=== PATIENT | female | born 2000 | race Caucasian/White ===

== ENCOUNTER 2018-07-06 00:02 | Observation (INO) ==
[2018-07-06] MEDS ORDERED: PANTOprazole 80 MG in DEXTROSE 5% 100 ML IV ONE (00:35)
[2018-07-06] MEDS ORDERED: raNITIdine 50 MG/102 ML BAG IV STA (00:35)
[2018-07-06 00:43] LABS: Basophils # (auto) 0.02 K/uL (0-0.2); Basophils % (auto) 0.2 %; Eosinophils # (auto) 0.05 K/uL (0-0.5); Eosinophils % (auto) 0.6 %; Hemoglobin 15.3 g/dL (12.0-16.0); Immature Granulocytes # (auto) 0.03 K/uL (0.00-0.02); Immature Granulocytes % (auto) 0.3 %; Lymphocytes # (auto) 1.36 K/uL (1.2-3.4); Lymphocytes % (auto) 15.6 %; Mean Corpuscular Hgb Conc 34.8 g/dL (32-36); Mean Corpuscular Volume 86.3 fL (80-100); Mean Platelet Volume 10.5 fL (7.4-10.4); Monocytes # (auto) 0.47 K/uL (0.11-0.59); Monocytes % (auto) 5.4 %; Neutrophils # (auto) 6.78 K/uL (1.4-6.5); Neutrophils % (auto) 77.9 %; Platelet Count 166 K/uL (130-400); RDW Coefficient of Variation 13.5 % (11.5-14.5); RDW Standard Deviation 42.9 fL (36.4-46.3); White Blood Count 8.71 K/uL (4.8-10.8)
[2018-07-06] MEDS ORDERED: SODIUM CHLORIDE 0.9% 1000ML 1,000 ML IV SCH (00:45)
[2018-07-06 01:00] LABS: Albumin Level 3.4 gm/dl (3.4-5.0); BUN Creatinine Ratio 10.8 (10-20); Calcium 8.2 mg/dl (8.5-10.1); Creatinine Clr Calc Pharmacy 90.3 ml/min; Est GFR (Non-African American) 114.7; Potassium 3.7 mmol/L (3.5-5.1)
[2018-07-06 01:03] LABS: Bilirubin,Total 0.3 mg/dl (0.2-1); Globulin 3.5 gm/dl (2.5-4.0); Total Protein 6.9 gm/dl (6.4-8.2)
[2018-07-06 01:04] LABS: Appearance Urine Clear (Clear); Bilirubin Urine Negative (Negative); Blood Urine Negative (Negative); Color Urine Yellow; Glucose Urine UA Negative (Negative); Ketones Urine 1+ (Negative); Leukocyte Esterase Urine Negative (Negative); Nitrite Urine Negative (Negative); Protein Urine Negative (Negative); Urobilinogen Urine Negative (Negative)
[2018-07-06] MEDS ORDERED: IOVERSOL 100ml IV PRN (01:37)
[2018-07-06] MEDS ORDERED: CALCIUM GLUCONATE 10% 1,000 MG in SODIUM CHLORIDE 0.9% 50 ML IV STA (02:42)
[2018-07-06 02:53] LABS: Magnesium 2.1 mg/dl (1.8-2.4)
--- NOTE | 2018-07-06 03:17 | Emergency Department Note ---
History of Present Illness General Chief complaint: Abdominal Pain Stated complaint: STOMACH PAIN History of Present Illness Maximum Pain Intensity: 4 This 18-year-old presents to the ER complaining of epigastric pain with black tarry stool Location: Epigastric Quality: Uncomfortable Severity: Moderate Duration: Today Timing: This morning Context: Patient was concerned and came in Modifying factors: better with nothing; worse with eating Patient states she has been taking a lot of Motrin for her headaches. She smokes. She takes control. She does not eat much. No history of GI bleeding in the past. Patient denies chest pain, dyspnea, fevers, vomiting, diarrhea, back pain, urinary symptoms, lightheadedness, weakness. No other concerns per patient. No alcohol or drug use. Home Medications Home Medications Medication Instructions Recorded Confirmed Type desogestrel-ethinyl estradiol 1 tab PO DAILY 07/06/18 07/06/18 History [Apri] Allergies Allergy/AdvReac Type Severity Reaction Status Date / Time Penicillins Allergy Intermediate Hives Unverified 07/06/18 02:26 Past Med/Surg History Medical History Migraines Social History Feels Safe at Home: Yes Smoking Status: Current every day smoker Preferred Language: [place] Review of Systems All systems reviewed & are unremarkable except as noted in HPI & below Physical Exam Vital Signs Vital Signs - 24 hr 07/06/18 00:07 07/06/18 01:46 Temperature 36.6 C Temperature Source Oral Sepsis Recent Fever Within 48 Hours No Sepsis Action Taken by Nursing No Action Required Pulse Rate 86 Pulse Rate [Left Finger] 73 Pulse Rhythm Regular Pulse Strength Normal Respiratory Rate 18 16 Respiratory Effort / Characteristics Non-Labored Spontaneous Non-Labored Spontaneous Respiratory Depth Normal Normal Respiratory Pattern Regular Regular Blood Pressure 129/83 Blood Pressure [Right Arm] 123/74 Blood Pressure Mean 98 Blood Pressure Mean [Right Arm] 90 Blood Pressure Position Sitting Blood Pressure Position [Right Arm] Lying Pulse Oximetry 99 99 Oxygen Delivery Method Room Air Room Air VITALS: Vitals are noted on the nurse's note and reviewed by myself. Vital signs stable. GENERAL: Pleasant female, in no acute distress, nondiaphoretic, well-developed well-nourished. SKIN: The skin was without rashes, erythema, edema, or bruising. There is no tenting of the skin. Capillary reflex less than 2 seconds. HEAD: Normocephalic atraumatic. EARS: External auditory canals clear, tympanic membranes pearly [place] without erythema or effusion bilaterally. EYES: Pupils equal round and reactive to light and accommodation. Conjunctivae without injection, sclerae without icterus. Extraocular movements intact. NOSE: Patent, turbinates without inflammation or discharge. MOUTH: Mucous membranes moist. Pharynx without erythema or exudate. Uvula midline. Airway patent. Tongue does not deviate. NECK: Supple without nuchal rigidity. No lymphadenopathy. No thyromegaly. Cervical spine is nontender. No JVD. HEART: Regular rate and rhythm without murmurs gallops or rubs. LUNGS: Clear to auscultation bilaterally without wheezes, rales or rhonchi. No retractions or accessory muscle use. ABDOMEN: Positive bowel sounds x 4. Normal tympanic percussion. Soft, tender to palpation epigastric region, without masses or organomegaly. Mcintyre sign negative. No guarding or rebound tenderness. No CVA tenderness Rectal exam: Black stool guaiac positive. No fissures or tears. MUSCULOSKELETAL: No muscle atrophy, erythema, or edema noted. NEURO: Patient was alert and oriented to person place and time. Normal sensation to light and sharp touch. No focal neurological deficits. Course Administered Medications Sodium Chloride (Nss 1000ml) 1,000 mls @ 100 mls/hr IV .Q10H [facility] Stop: 07/06/18 10:44 Last Admin: 07/06/18 00:51 Dose: 100 mls/hr Ioversol (Optiray 320 100ml) 93 ml IV ONCE PRN PRN Reason: Interaction Checking Stop: 07/10/18 01:36 Last Admin: 07/06/18 01:37 Dose: 93 ml Discontinued Medications Ranitidine HCl (Zantac) 50 mg in 102 mls @ 200 mls/hr IV NOW STA Stop: 07/06/18 01:05 Last Infusion: 07/06/18 01:25 Dose: Admin: 07/06/18 00:51 Dose: 200 mls/hr Pantoprazole Sodium 80 mg/ (Dextrose) 100 mls @ 400 mls/hr IV NOW ONE Stop: 07/06/18 00:49 Last Infusion: 07/06/18 01:45 Dose: Admin: 07/06/18 01:26 Dose: 400 mls/hr Calcium Gluconate 1,000 mg/ (Sodium Chloride) 60 mls @ 240 mls/hr IV NOW STA Stop: 07/06/18 02:56 Last Admin: 07/06/18 02:59 Dose: 240 mls/hr Medical Decision Making Medical Records Attestation: I reviewed the patient's medical records. Home Medications Current Medication List: was personally reviewed by me Laboratory Data Attestation: I reviewed the patient's lab results. Result diagrams: 07/06/18 00:20 07/06/18 00:20 Lab Results 07/06/18 07/06/18 07/06/18 Range/Units 00:15 00:15 00:20 WBC 8.71 (4.8-10.8) K/uL RBC 5.10 (4.2-5.4) M/uL Hgb 15.3 (12.0-16.0) g/dL Hct 44.0 (37-47) % MCV 86.3 (80-100) fL MCH 30.0 (25-34) pg MCHC 34.8 (32-36) g/dL RDW Std Deviation 42.9 (36.4-46.3) fL RDW Coeff of Gabe 13.5 (11.5-14.5) % Plt Count 166 (130-400) K/uL MPV 10.5 H (7.4-10.4) fL Immature Gran % (Auto) 0.3 % Neut % (Auto) 77.9 % Lymph % (Auto) 15.6 % [place] % (Auto) 5.4 % Eos % (Auto) 0.6 % Baso % (Auto) 0.2 % Immature Gran # (Auto) 0.03 H (0.00-0.02) K/uL Neut # (Auto) 6.78 H (1.4-6.5) K/uL Lymph # (Auto) 1.36 (1.2-3.4) K/uL [place] # (Auto) 0.47 (0.11-0.59) K/uL Eos # (Auto) 0.05 (0-0.5) K/uL Baso # (Auto) 0.02 (0-0.2) K/uL PT (9.0-12.0) Seconds INR (0.9-1.1) APTT (21.0-31.0) Seconds PTT Ratio Sodium (136-145) mmol/L Potassium (3.5-5.1) mmol/L Chloride (98-107) mmol/L Carbon Dioxide (21-32) mmol/L Anion Gap (3-11) BUN (7-18) mg/dl Creatinine (0.6-1.2) mg/dl Est Cr Clr Drug Dosing ml/min Est GFR ( Amer) Est GFR (Non-Af Amer) BUN/Creatinine Ratio (10-20) Glucose (70-99) mg/dl Calcium (8.5-10.1) mg/dl Magnesium (1.8-2.4) mg/dl Total Bilirubin (0.2-1) mg/dl AST (15-37) U/L ALT (12-78) U/L Alkaline Phosphatase (45-117) U/L Total Protein (6.4-8.2) gm/dl Albumin (3.4-5.0) gm/dl Globulin (2.5-4.0) gm/dl Albumin/Globulin Ratio (0.9-2) Lipase (73-393) U/L Urine Color Yellow Urine Appearance Clear (Clear) Urine pH 5.0 (4.5-7.5) Ur Specific [place] 1.020 (1.000-1.030) Urine Protein Negative (Negative) Urine Glucose (UA) Negative (Negative) Urine Ketones 1+ H (Negative) Urine Blood Negative (Negative) Urine Nitrite Negative (Negative) Urine Bilirubin Negative (Negative) Urine Urobilinogen Negative (Negative) Ur Leukocyte Esterase Negative (Negative) POC Ur Test NEG (NEG) Blood Type Antibody Screen 07/06/18 07/06/18 07/06/18 Range/Units 00:20 00:20 01:01 WBC (4.8-10.8) K/uL RBC (4.2-5.4) M/uL Hgb (12.0-16.0) g/dL Hct (37-47) % MCV (80-100) fL MCH (25-34) pg MCHC (32-36) g/dL RDW Std Deviation (36.4-46.3) fL RDW Coeff of Gabe (11.5-14.5) % Plt Count (130-400) K/uL MPV (7.4-10.4) fL Immature Gran % (Auto) % Neut % (Auto) % Lymph % (Auto) % [place] % (Auto) % Eos % (Auto) % Baso % (Auto) % Immature Gran # (Auto) (0.00-0.02) K/uL Neut # (Auto) (1.4-6.5) K/uL Lymph # (Auto) (1.2-3.4) K/uL [place] # (Auto) (0.11-0.59) K/uL Eos # (Auto) (0-0.5) K/uL Baso # (Auto) (0-0.2) K/uL PT 10.0 (9.0-12.0) Seconds INR 1.0 (0.9-1.1) APTT 26.0 (21.0-31.0) Seconds PTT Ratio 1.0 Sodium 136 (136-145) mmol/L Potassium 3.7 (3.5-5.1) mmol/L Chloride 107 (98-107) mmol/L Carbon Dioxide 22 (21-32) mmol/L Anion Gap 7.0 (3-11) BUN 8 (7-18) mg/dl Creatinine 0.75 (0.6-1.2) mg/dl Est Cr Clr Drug Dosing 90.3 ml/min Est GFR ( Amer) 133.0 Est GFR (Non-Af Amer) 114.7 BUN/Creatinine Ratio 10.8 (10-20) Glucose 82 (70-99) mg/dl Calcium 8.2 L (8.5-10.1) mg/dl Magnesium 2.1 (1.8-2.4) mg/dl Total Bilirubin 0.3 (0.2-1) mg/dl AST 17 (15-37) U/L ALT 21 (12-78) U/L Alkaline Phosphatase 55 (45-117) U/L Total Protein 6.9 (6.4-8.2) gm/dl Albumin 3.4 (3.4-5.0) gm/dl Globulin 3.5 (2.5-4.0) gm/dl Albumin/Globulin Ratio 1.0 (0.9-2) Lipase 110 (73-393) U/L Urine Color Urine Appearance (Clear) Urine pH (4.5-7.5) Ur Specific [place] (1.000-1.030) Urine Protein (Negative) Urine Glucose (UA) (Negative) Urine Ketones (Negative) Urine Blood (Negative) Urine Nitrite (Negative) Urine Bilirubin (Negative) Urine Urobilinogen (Negative) Ur Leukocyte Esterase (Negative) POC Ur Test (NEG) Blood Type A Positive Antibody Screen NEGATIVE MDM Narrative Prior records/ancillary studies reviewed. Triage Nursing notes reviewed. Additional history obtained from the family. The patient's history was concerning for possible gastrointestinal bleeding. Differential diagnosis: Etiologies such as diverticulosis, AVM, coagulopathy, colitis, inflammatory bowel disease, malignancy, Ingrid-Iverson tear, esophagitis, peptic ulcer disease , variceal bleed, gastritis, epistaxis, fissure, hemorrhoids, as well as others were entertained. Physical exam: As above. The patients vital signs were stable. ER treatment provided: IV Protonix On reassessment the patient felt better. Diagnostics interpreted by me: ECG: Normal sinus, normal intervals, no acute ST-T wave changes. Impression normal sinus rhythm interpreted by myself I think arrhythmia is unlikely. EKG shows normal sinus rhythm with no interval abnormalities such as QT prolongation or WPW. There are no findings to suggest Brugada syndrome. Cardiac monitoring in the emergency department reveals no tachycardic or bradycardic dysrhythmia. Hypertrophic cardiomyopathy was considered but there are no clear historical elements pointing toward this. EKG is not suggestive. The QRS voltage is not extremely large and there are no suggestive Q waves. The labs revealed stable H&H Imaging studies: CT ABDOMEN & PELVIS With Contrast: Compared to 11/02/17. Fluid in the small and large bowel, can be seen with enteritis or diarrheal disease. Areas of mild bowel wall thickening or underdistention. Correlate clinically for inflammatory/ infectious process. No evidence of bowel obstruction. Dense material in the stomach is presumably related to prior ingestion. Small-moderate pelvic free fluid. Mildly thickened underdistended bladder. Tubular structure in the right lower quadrant may represent a partially visualized normal caliber appendix. Radiologist: Madeleine Davis M.D. Consultation: A consultation was placed with Dr Rodrigez, hospitalist. The case was discussed and diagnostics were reviewed. The patient was evaluated in the ER for further treatment. This appears to be consistent with GI bleeding most likely from a stomach ulcer. Patient has been taking a lot of Motrin. She smokes. Patient started on Protonix. Medicine was consulted. Patient is agreeable treatment plan of admission. By the evaluation outlined above emergent etiologies such as esophageal perforation, variceal bleed, coagulopathy, epistaxis, malignancy, inflammatory bowel disease, as well as others were deemed relatively unlikely. The pt informed about the findings as listed above. All questions were answered and pleased with the treatment. Case reviewed with my attending The chart was completed utilizing [employer] voice recognition software. Grammatical errors, random word insertions, pronoun errors, and incomplete sentences are an occassional consequence of this system due to software limitations, ambient noise, and hardware issues. Any formal questions or concerns about the content, text, or information contained within the body of this dictation should be directly addressed to the physician financial services assistant for clarification. Impression & Plan GI bleed Discharge Plan Visit Data Chief Complaint: Abdominal Pain Stated Complaint: STOMACH PAIN ED Provider: Lena Baca ED Midlevel Provider: Maye Davies Discharge Problem: GI bleed Patient Disposition: Admitted As Inpatient Condition: Good Forms Stand Alone Forms: [facility], Important Visit Information Prescriptions Prescriptions: No Action desogestrel-ethinyl estradiol [Apri] 0.15-0.03 mg tablet 1 tab PO DAILY RF: 0 Referrals Referrals: Samy Morse [Primary Care Provider] -
[2018-07-06] MEDS ORDERED: ACETAMINOPHEN 325 MG TAB PO STA (03:18)
[2018-07-06] MEDS ORDERED: ACETAMINOPHEN 325 MG TAB ONE (03:24)
--- NOTE | 2018-07-06 03:47 | History & Physical Report ---
Date of Service July 06, 2018 Assessment & Plan (1) UGIB (upper gastrointestinal bleed): History OTC NSAID intake for worsening migraine symptoms Differentials include gastritis, PUD Patient hemoglobin stable Diarrhea rule out C. difficile Ongoing tobacco abuse OBS Medical telemetry IV PPI GI consult RE UGIB Patient counseled about hazards of NSAID intake on an empty stomach. Serial H&H, transfuse PRBC if hemoglobin less than 7 and or for symptomatic anemia Stool C. difficile Outpatient workup for increased frequency of migraine attacks as per patient request. Stool C. difficile nicotine patch as needed DVT prophylaxis. SCDs RE GI bleed Full code History of Present Illness Chief Complaint: Abdominal pain, melena Primary Care Provider: Samy Morse History obtained from patient, family, and records. Medical history significant for migraine, ongoing tobacco abuse. The last 2 months patient noted increased frequency of migraine symptoms, almost daily. Patient will take 3 Advil tablets for each attack, a number of times on an empty stomach. Yesterday afternoon, patient noted burning epigastric pain followed by loose melanotic stools. Some nausea, no emesis. Voluntary weight loss over the last few months. At the ER, IV PPI started for UGIB. 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 Allergies Allergy/AdvReac Type Severity Reaction Status Date / Time Penicillins Allergy Intermediate Hives Unverified 07/06/18 02:26 Home Medications Home Medications Medication Instructions Recorded Confirmed Type desogestrel-ethinyl estradiol 1 tab PO DAILY 07/06/18 07/06/18 History loperamide 2 mg PO Q3H PRN #14 tab 07/06/18 Rx Past Med/Surg History Medical History Migraines Social History Current Living Situation: Family Feels Safe at Home: Yes Safety Concerns: Feels Safe At This Time Smoking Status: Current every day smoker Tobacco Type: cigarettes Cigarettes per Day: 10 Hx Alcohol Use: No Hx Substance Use: No Beliefs That Will Affect Care: None Preferred Language: Yoruba Review of Systems As per HPI, all 10 systems reviewed, all other ROS negative Physical Exam 2 Vital Signs (Past 24 Hours): Last Vital Signs Temp 36.6 C 07/06/18 00:07 Pulse 73 07/06/18 01:46 Resp 16 07/06/18 01:46 BP 123/74 07/06/18 01:46 Pulse Ox 99 07/06/18 01:46 Physical Exam: GENERAL: Slightly anxious, no respiratory distress SKIN: Normal color, warm HEENT: [place] palpebral conjunctivae, no ptosis, dry buccal mucosa NECK : Supple, no tenderness CHEST : CTA, no tenderness HEART : RRR, no obvious murmurs ABDOMEN: Some distention, epigastric tenderness EXTREMITIES : No LE swelling, no LE tenderness, no other conspicuous deformities noted NEUROLOGIC : Coherent, no facial asymmetry, no other gross focality Results & Data Laboratory Results Laboratory Results WBC 8.71 K/uL (4.8-10.8) 07/06/18 00:20 RBC 5.10 M/uL (4.2-5.4) 07/06/18 00:20 Hgb 15.3 g/dL (12.0-16.0) 07/06/18 00:20 Hct 44.0 % (37-47) 07/06/18 00:20 MCV 86.3 fL (80-100) 07/06/18 00:20 MCH 30.0 pg (25-34) 07/06/18 00:20 MCHC 34.8 g/dL (32-36) 07/06/18 00:20 RDW Std Deviation 42.9 fL (36.4-46.3) 07/06/18 00:20 RDW Coeff of Gabe 13.5 % (11.5-14.5) 07/06/18 00:20 Plt Count 166 K/uL (130-400) 07/06/18 00:20 MPV 10.5 fL (7.4-10.4) H 07/06/18 00:20 Immature Gran % (Auto) 0.3 % 07/06/18 00:20 Neut % (Auto) 77.9 % 07/06/18 00:20 Lymph % (Auto) 15.6 % 07/06/18 00:20 [place] % (Auto) 5.4 % 07/06/18 00:20 Eos % (Auto) 0.6 % 07/06/18 00:20 Baso % (Auto) 0.2 % 07/06/18 00:20 Immature Gran # (Auto) 0.03 K/uL (0.00-0.02) H 07/06/18 00:20 Neut # (Auto) 6.78 K/uL (1.4-6.5) H 07/06/18 00:20 Lymph # (Auto) 1.36 K/uL (1.2-3.4) 07/06/18 00:20 [place] # (Auto) 0.47 K/uL (0.11-0.59) 07/06/18 00:20 Eos # (Auto) 0.05 K/uL (0-0.5) 07/06/18 00:20 Baso # (Auto) 0.02 K/uL (0-0.2) 07/06/18 00:20 PT 10.0 Seconds (9.0-12.0) 07/06/18 00:20 INR 1.0 (0.9-1.1) 07/06/18 00:20 APTT 26.0 Seconds (21.0-31.0) 07/06/18 00:20 PTT Ratio 1.0 07/06/18 00:20 Sodium 136 mmol/L (136-145) 07/06/18 00:20 Potassium 3.7 mmol/L (3.5-5.1) 07/06/18 00:20 Chloride 107 mmol/L (98-107) 07/06/18 00:20 Carbon Dioxide 22 mmol/L (21-32) 07/06/18 00:20 Anion Gap 7.0 (3-11) 07/06/18 00:20 BUN 8 mg/dl (7-18) 07/06/18 00:20 Creatinine 0.75 mg/dl (0.6-1.2) 07/06/18 00:20 Est Cr Clr Drug Dosing 90.3 ml/min 07/06/18 00:20 Est GFR ( Amer) 133.0 07/06/18 00:20 Est GFR (Non-Af Amer) 114.7 07/06/18 00:20 BUN/Creatinine Ratio 10.8 (10-20) 07/06/18 00:20 Glucose 82 mg/dl (70-99) 07/06/18 00:20 Calcium 8.2 mg/dl (8.5-10.1) L 07/06/18 00:20 Magnesium 2.1 mg/dl (1.8-2.4) 07/06/18 00:20 Total Bilirubin 0.3 mg/dl (0.2-1) 07/06/18 00:20 AST 17 U/L (15-37) 07/06/18 00:20 ALT 21 U/L (12-78) 07/06/18 00:20 Alkaline Phosphatase 55 U/L (45-117) 07/06/18 00:20 Total Protein 6.9 gm/dl (6.4-8.2) 07/06/18 00:20 Albumin 3.4 gm/dl (3.4-5.0) 07/06/18 00:20 Globulin 3.5 gm/dl (2.5-4.0) 07/06/18 00:20 Albumin/Globulin Ratio 1.0 (0.9-2) 07/06/18 00:20 Lipase 110 U/L (73-393) 07/06/18 00:20 Urine Color Yellow 07/06/18 00:15 Urine Appearance Clear (Clear) 07/06/18 00:15 Urine pH 5.0 (4.5-7.5) 07/06/18 00:15 Ur Specific [place] 1.020 (1.000-1.030) 07/06/18 00:15 Urine Protein Negative (Negative) 07/06/18 00:15 Urine Glucose (UA) Negative (Negative) 07/06/18 00:15 Urine Ketones 1+ (Negative) H 07/06/18 00:15 Urine Blood Negative (Negative) 07/06/18 00:15 Urine Nitrite Negative (Negative) 07/06/18 00:15 Urine Bilirubin Negative (Negative) 07/06/18 00:15 Urine Urobilinogen Negative (Negative) 07/06/18 00:15 Ur Leukocyte Esterase Negative (Negative) 07/06/18 00:15 POC Ur Test NEG (NEG) 07/06/18 00:15 Blood Type A Positive 07/06/18 01:01 Antibody Screen NEGATIVE 07/06/18 01:[address] abdomen pelvis initial read: Enteritis. Dense material in the stomach. Under distended bladder
[2018-07-06] MEDS ORDERED: TRAMADOL HCL 50 MG TABLET PO PRN (05:11)
[2018-07-06] MEDS ORDERED: D5NSS + 20MEQ KCL 20 MEQ/1,000 ML BAG IV SCH (05:11)
[2018-07-06] MEDS ORDERED: PROCHLORPERAZINE 5 MG in SYRINGE 4 ML IV PRN (05:11)
[2018-07-06] MEDS ORDERED: ACETAMINOPHEN 325 MG TAB PO PRN (05:11)
[2018-07-06] MEDS ORDERED: LORazepam 0.25 MG/0.5 ML VIAL IV PRN (05:11)
--- NOTE | 2018-07-06 07:08 | CT Scan Report ---
CT abd pelvis IV con only CLINICAL HISTORY: Epigastric pain. Gastrointestinal hemorrhage. COMPARISON STUDY: November 02, 2017 TECHNIQUE: The patient was scanned in a dynamic helical fashion during intravenous administration of 93 cc of Optiray 320. A dose lowering technique was utilized adhering to the principles of ALARA. CT DOSE: 274.73 mGy.cm FINDINGS: Lower chest: The heart is normal in size and configuration, without pericardial effusion. The lung ba ses and pleural spaces are clear. Liver: The contrast-enhanced liver is normal in size, contour, and attenuation. There is no intrahepa tic biliary ductal dilatation. The hepatic veins and portal veins are patent. Gallbladder: Unremarkable. Spleen: Normal in size and attenuation. Pancreas: Unremarkable. Adrenal glands: Unremarkable. Kidneys: There is symmetric renal cortical enhancement. The kidneys are normal in size without hydron ephrosis. Bowel: Evaluation is limited due to the possibility of intra-abdominal fat and the lack of orally adm inistered contrast. There are no transition zones to indicate bowel obstruction. There are no finding s to indicate acute diverticulitis. There are no findings to indicate acute appendicitis although juni luation in this region is limited. There are multiple fluid-filled small bowel loops with borderline wall thickening. An enteritis cannot be excluded. Peritoneum: There is a small amount of free pelvic fluid. No free intraperitoneal air is visualized. Vasculature: The abdominal aorta is normal in course and caliber. Adenopathy: None. Pelvic viscera: The bladder, and pelvic viscera are unremarkable. Skeletal structures: No destructive osseous lesions are seen. IMPRESSION: 1. No evidence of bowel obstruction. No evidence of free air 2. No evidence of acute diverticulitis. No evidence of acute appendicitis. 3. Small amount of free pelvic fluid, slightly more than expected for physiologic free fluid 4. Multiple fluid-filled nondilated small bowel loops with equivocal mild wall thickening. An enterit is cannot be excluded. Electronically signed by: Brodie Quinn M.D. 07/06/2018 7:07 AM
[2018-07-06 08:12] LABS: Hematocrit (blood only) 39.7 % (37-47); Hemoglobin 13.3 g/dL (12.0-16.0)
[2018-07-06] MEDS ORDERED: PANTOprazole 40 MG in SYRINGE 0 ML IV SCH (09:00)
--- NOTE | 2018-07-06 11:39 | Gastrointestinal Consultation ---
Date of Consultation July 06, 2018 Assessment & Plan (1) Abdominal pain: Present on Admission?: Yes (2) Diarrhea: Pt is a 18 y/o female who presented w periumbilical, LLQ abd pain (now resolved), diarrhea; CT evidence of fluid filled non dilated small bowel loops, ? enteritis. Hx of recent antibx use, and exposure to several people with gastroenteritis; also recently increased NSAIDs intake, + tobacco use. However no signs of melena, normal blood ct, BUN so unlikely to have UGI bleed. Suspect likely has gastroenteritis - Ok for regular diet, maintain hydration - Check Cdiff and stool cx - Advised to avoid NSAIDs, or if taking she can use antacids and eat snack with the med to help prevent gastritis or PUD. - She desires to go home; no contraindication for DC from GI standpoint. attg add: I interviewed and examined pt, reviewed chart and labs. Pt with aburpt onset of pain and loose liquid stool since yesterday. + Heavy NSAIDs. + mult contacts with gastroenteritis, works at [employer]. Suspect gastroenteritis, expect symptoms to spont resolve after 3-5 days. OK for d/c, will check hgb in 2 days; if remains stable, then defer EGD. Present on Admission?: Yes History of Present Illness Reason for Consultation: Possible UGI bleed Requesting Physician: Dr. Naldo Rodrigez Attending Physician: Dr. Margie Resendiz History of Present Illness Pt is a 18 y/o female who presented to ED yesterday w c/o abd pain, and loose dark stools. Hx of migraines and tobacco abuse. She completed Z-pack last week for bronchitis. 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 She had been also taking Advil 3 tabs daily for migrained recently. She started having periumbilical and LLQ abd pain yesterday morning w/ o N/V, then followed by diarrhea w stools dark greenish in appearance. Stools aren't tarry and she denies any BRBPR. It's not uncommon for her to have diarrhea sometimes but she said what brought her to ED was the abd pain. Upon evaluation, labs showed no signs of anemia, BUN/Cr normal. CT abd/pelvis w/o bowel obstruction or free air, no diverticulitis or appendicitis, there's multiple fluid-filled nondilated small bowel loops with equivocal mild wall thickening. An enteritis cannot be excluded. Once admitted, no BMs overnight and abd pain is gone. She would like to go home. This AM did have another bout of diarrhea again w/o rectal bleeding and stools were being checked for Cdiff. We will add Stool culture too. Allergies Allergy/AdvReac Type Severity Reaction Status Date / Time Penicillins Allergy Intermediate Hives Unverified 07/06/18 02:26 Home Medications Home Medications Medication Instructions Recorded Confirmed Type desogestrel-ethinyl estradiol 1 tab PO DAILY 07/06/18 07/06/18 History loperamide 2 mg PO Q3H PRN #14 tab 07/06/18 Rx Patient History Medical History Migraines Social History Current Living Situation: Family Feels Safe at Home: Yes Safety Concerns: Feels Safe At This Time Smoking Status: Current every day smoker Tobacco Type: cigarettes Cigarettes per Day: 10 Hx Alcohol Use: No Hx Substance Use: No Beliefs That Will Affect Care: None Preferred Language: Israeli Review of Systems Constitutional: as per Subjective / HPI Respiratory: no cough and no dyspnea Cardiovascular: no chest pain, no lightheadedness and no edema Gastrointestinal: + diarrhea/loose stools; no abdominal pain, no heartburn, no nausea, no vomiting, no hematemesis, no pain with swallowing, no dysphagia, no cramping, no change in stools and no melena Physical Exam 2 Vital Signs (Past 24 Hours): Last Vital Signs Temp 36.5 C 07/06/18 07:05 Pulse 60 07/06/18 07:05 Resp 20 07/06/18 05:45 BP 109/68 07/06/18 07:05 Pulse Ox 99 07/06/18 07:05 Constitutional: WD/WN, vitals as above well groomed, cooperative and comfortable Eyes: PERRL, conjunctivae normal, anicteric sclerae ENMT: external ear and nose normal, oropharynx normal Respiratory: normal respiratory effort, lungs clear to auscultation Cardiovascular: RRR, no murmur, no edema Gastrointestinal (Abdomen): normal bowel sounds, soft, nontender, no hepatosplenomegaly Skin: no rashes, warm and dry no jaundice Neurologic: Motor/Sensory: no asterixis Psychiatric: A+Ox3, euthymic affect Lymphatic: no lymphedema Results & Data Laboratory Results Laboratory Results - last 72 hr 07/06/18 07/06/18 07/06/18 00:15 00:15 00:20 WBC 8.71 RBC 5.10 Hgb 15.3 Hct 44.0 MCV 86.3 MCH 30.0 MCHC 34.8 RDW Std Deviation 42.9 RDW Coeff of Gabe 13.5 Plt Count 166 MPV 10.5 H Immature Gran % (Auto) 0.3 Neut % (Auto) 77.9 Lymph % (Auto) 15.6 [place] % (Auto) 5.4 Eos % (Auto) 0.6 Baso % (Auto) 0.2 Immature Gran # (Auto) 0.03 H Neut # (Auto) 6.78 H Lymph # (Auto) 1.36 [place] # (Auto) 0.47 Eos # (Auto) 0.05 Baso # (Auto) 0.02 PT INR APTT PTT Ratio Sodium Potassium Chloride Carbon Dioxide Anion Gap BUN Creatinine Est Cr Clr Drug Dosing Est GFR ( Amer) Est GFR (Non-Af Amer) BUN/Creatinine Ratio Glucose Calcium Magnesium Total Bilirubin AST ALT Alkaline Phosphatase Total Protein Albumin Globulin Albumin/Globulin Ratio Lipase Urine Color Yellow Urine Appearance Clear Urine pH 5.0 Ur Specific [place] 1.020 Urine Protein Negative Urine Glucose (UA) Negative Urine Ketones 1+ H Urine Blood Negative Urine Nitrite Negative Urine Bilirubin Negative Urine Urobilinogen Negative Ur Leukocyte Esterase Negative POC Ur Test NEG Stl C. diff Tox B Gene Blood Type Antibody Screen 07/06/18 07/06/18 07/06/18 00:20 00:20 01:01 WBC RBC Hgb Hct MCV MCH MCHC RDW Std Deviation RDW Coeff of Gabe Plt Count MPV Immature Gran % (Auto) Neut % (Auto) Lymph % (Auto) [place] % (Auto) Eos % (Auto) Baso % (Auto) Immature Gran # (Auto) Neut # (Auto) Lymph # (Auto) [place] # (Auto) Eos # (Auto) Baso # (Auto) PT 10.0 INR 1.0 APTT 26.0 PTT Ratio 1.0 Sodium 136 Potassium 3.7 Chloride 107 Carbon Dioxide 22 Anion Gap 7.0 BUN 8 Creatinine 0.75 Est Cr Clr Drug Dosing 90.3 Est GFR ( Amer) 133.0 Est GFR (Non-Af Amer) 114.7 BUN/Creatinine Ratio 10.8 Glucose 82 Calcium 8.2 L Magnesium 2.1 Total Bilirubin 0.3 AST 17 ALT 21 Alkaline Phosphatase 55 Total Protein 6.9 Albumin 3.4 Globulin 3.5 Albumin/Globulin Ratio 1.0 Lipase 110 Urine Color Urine Appearance Urine pH Ur Specific [place] Urine Protein Urine Glucose (UA) Urine Ketones Urine Blood Urine Nitrite Urine Bilirubin Urine Urobilinogen Ur Leukocyte Esterase POC Ur Test Stl C. diff Tox B Gene Blood Type A Positive Antibody Screen NEGATIVE 07/06/18 07/06/18 07:52 08:20 WBC RBC Hgb 13.3 Hct 39.7 MCV MCH MCHC RDW Std Deviation RDW Coeff of Gabe Plt Count MPV Immature Gran % (Auto) Neut % (Auto) Lymph % (Auto) [place] % (Auto) Eos % (Auto) Baso % (Auto) Immature Gran # (Auto) Neut # (Auto) Lymph # (Auto) [place] # (Auto) Eos # (Auto) Baso # (Auto) PT INR APTT PTT Ratio Sodium Potassium Chloride Carbon Dioxide Anion Gap BUN Creatinine Est Cr Clr Drug Dosing Est GFR ( Amer) Est GFR (Non-Af Amer) BUN/Creatinine Ratio Glucose Calcium Magnesium Total Bilirubin AST ALT Alkaline Phosphatase Total Protein Albumin Globulin Albumin/Globulin Ratio Lipase Urine Color Urine Appearance Urine pH Ur Specific [place] Urine Protein Urine Glucose (UA) Urine Ketones Urine Blood Urine Nitrite Urine Bilirubin Urine Urobilinogen Ur Leukocyte Esterase POC Ur Test Stl C. diff Tox B Gene Neg C.diff Toxin B Blood Type Antibody Screen
[2018-07-06 11:59] LABS: Hematocrit (blood only) 40.2 % (37-47); Hemoglobin 13.6 g/dL (12.0-16.0)
--- NOTE | 2018-07-06 14:23 | Hospitalist Progress Note ---
Date of Service July 06, 2018 delayed entry date of service as noted above Assessment & Plan (1) Diarrhea: likely Viral Gastroenteritis Stool D ciff negative Stool culture negative CT abdomen/pelv: IMPRESSION: 1. No evidence of bowel obstruction. No evidence of free air 2. No evidence of acute diverticulitis. No evidence of acute appendicitis. 3. Small amount of free pelvic fluid, slightly more than expected for physiologic free fluid 4. Multiple fluid-filled nondilated small bowel loops with equivocal mild wall thickening. An enteritis cannot be excluded. given IV fluids, supportive care concern for Upper GI bleed due to report of melena, in the setting of abdominal pain and NSAID use for migraine Hg stable, GI consulted, EGD not recommended at this time Impression is Viral Gastroenteritis diarrhea improving, melena resolved advised soft, low fiber diet, no NSAID use ff up with PCP in 3-5 days, repeat CBC on ff up hg on discharge 13, consider EGD if Hg further trending down Migraine stable outpatient ff up case and plan of care discussed with patient and her mother they are comfortable and agreeable with plan of care Subjective ff up for possible GI bleed seen with TJ Pritchard at bedside throughout whole encounter patient's mother at the bedside seen resting in bed, comfortable,pleasant states she feels better overall less diarrhea, no melena, denies abdominal pain, nausea no other symptoms states she is ready and would like to be discharged Physical Exam 2 Vital Signs (Past 24 Hours): Last Vital Signs Temp 36.7 C 07/06/18 11:29 Pulse 70 07/06/18 11:29 Resp 16 07/06/18 11:29 BP 113/71 07/06/18 11:29 Pulse Ox 97 07/06/18 11:29 Physical Exam: General- oriented x 3, not in distress, speaks in sentences with no effort or accessory muscle use Eyes- anicteric Neck- no JVD Lungs- clear breath sounds bilaterally, no rales/wheezes Heart- normal rate, regular rhythm; no murmurs Abdomen- normal bowel sounds, nondistended, soft, nontender Extremities- no pretibial edema, no calf tenderness Neuro- alert, oriented x 3; no gross focal neurologic deficits Skin- warm & dry Results & Data Laboratory Results all noted and reviewed
[2018-07-06] MEDS ORDERED: SODIUM CHLORIDE 0.9% 500 ML IV SCH (14:30)
[2018-07-06] MEDS ORDERED: MAGNESIUM HYDROXIDE SUSP 30 ML UDC PO PRN (14:30)
[2018-07-06] MEDS ORDERED: DOCUSATE SODIUM/SENNA 50/8.6MG TAB PO SCH (14:45)
--- NOTE | 2018-07-07 12:16 | Discharge Summary ---
Date of Service July 07, 2018 Admission HPI Per Admitting Provider History obtained from patient, family, and records. Medical history significant for migraine, ongoing tobacco abuse. The last 2 months patient noted increased frequency of migraine symptoms, almost daily. Patient will take 3 Advil tablets for each attack, a number of times on an empty stomach. Yesterday afternoon, patient noted burning epigastric pain followed by loose melanotic stools. Some nausea, no emesis. Voluntary weight loss over the last few months. At the ER, IV PPI started for UGIB. 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, [employer] employee Admission Exam Per Admitting Provider Vital Signs (Past 24 Hours): Last Vital Signs Temp 36.6 C 07/06/18 00:07 Pulse 73 07/06/18 01:46 Resp 07/06/18 01:46 BP 123/74 07/06/18 01:46 Pulse Ox 99 07/06/18 01:46 Physical Exam: GENERAL: Slightly anxious, no respiratory distress SKIN: Normal color, warm HEENT: [place] palpebral conjunctivae, no ptosis, dry buccal mucosa NECK : Supple, no tenderness CHEST : CTA, no tenderness HEART : RRR, no obvious murmurs ABDOMEN: Some distention, epigastric tenderness EXTREMITIES : No LE swelling, no LE tenderness, no other conspicuous deformities noted NEUROLOGIC : Coherent, no facial asymmetry, no other gross focality Principal Diagnosis Viral Gastroenteritis Discharge Exam Vital Signs (Past 24 Hours): Last Vital Signs Temp 36.7 C 07/06/18 11:29 Pulse 70 07/06/18 11:29 Resp 07/06/18 11:29 BP 113/71 07/06/18 11:29 Pulse Ox 97 07/06/18 11:29 Physical Exam: General- oriented x 3, not in distress, speaks in sentences with no effort or accessory muscle use Eyes- anicteric Neck- no JVD Lungs- clear breath sounds bilaterally, no rales/wheezes Heart- normal rate, regular rhythm; no murmurs Abdomen- normal bowel sounds, nondistended, soft, nontender Extremities- no pretibial edema, no calf tenderness Neuro- alert, oriented x 3; no gross focal neurologic deficits Skin- warm & dry Discharge Data Allergies Allergy/AdvReac Type Severity Reaction Status Date / Time Penicillins Allergy Intermediate Hives Unverified 07/06/18 02:26 Consultations 07/06/18 02:38 ED Decision to Admit Stat 07/06/18 02:54 ED Decision to Admit Stat 07/06/18 05:11 Consult Gastroenterology Routine Ordered Studies 07/06/18 00:35 CT abd pelvis IV con only Urgent CT abd pelvis IV con only CLINICAL HISTORY: Epigastric pain. Gastrointestinal hemorrhage. COMPARISON STUDY: November 02, 2017 TECHNIQUE: The patient was scanned in a dynamic helical fashion during intravenous administration of 93 cc of Optiray 320. A dose lowering technique was utilized adhering to the principles of ALARA. CT DOSE: 274.73 mGy.cm FINDINGS: Lower chest: The heart is normal in size and configuration, without pericardial effusion. The lung bases and pleural spaces are clear. Liver: The contrast-enhanced liver is normal in size, contour, and attenuation. There is no intrahepatic biliary ductal dilatation. The hepatic veins and portal veins are patent. Gallbladder: Unremarkable. Spleen: Normal in size and attenuation. Pancreas: Unremarkable. Adrenal glands: Unremarkable. Kidneys: There is symmetric renal cortical enhancement. The kidneys are normal in size without hydronephrosis. Bowel: Evaluation is limited due to the possibility of intra-abdominal fat and the lack of orally administered contrast. There are no transition zones to indicate bowel obstruction. There are no findings to indicate acute diverticulitis. There are no findings to indicate acute appendicitis although evaluation in this region is limited. There are multiple fluid-filled small bowel loops with borderline wall thickening. An enteritis cannot be excluded. Peritoneum: There is a small amount of free pelvic fluid. No free intraperitoneal air is visualized. Vasculature: The abdominal aorta is normal in course and caliber. Adenopathy: None. Pelvic viscera: The bladder, and pelvic viscera are unremarkable. Skeletal structures: No destructive osseous lesions are seen. IMPRESSION: 1. No evidence of bowel obstruction. No evidence of free air 2. No evidence of acute diverticulitis. No evidence of acute appendicitis. 3. Small amount of free pelvic fluid, slightly more than expected for physiologic free fluid 4. Multiple fluid-filled nondilated small bowel loops with equivocal mild wall thickening. An enteritis cannot be excluded. Hospital Course (1) Diarrhea: likely Viral Gastroenteritis Stool D ciff negative Stool culture negative CT abdomen/pelv: IMPRESSION: 1. No evidence of bowel obstruction. No evidence of free air 2. No evidence of acute diverticulitis. No evidence of acute appendicitis. 3. Small amount of free pelvic fluid, slightly more than expected for physiologic free fluid 4. Multiple fluid-filled nondilated small bowel loops with equivocal mild wall thickening. An enteritis cannot be excluded. given IV fluids, supportive care concern for Upper GI bleed due to report of melena, in the setting of abdominal pain and NSAID use for migraine Hg stable, GI consulted, EGD not recommended at this time Impression is Viral Gastroenteritis diarrhea improving, melena resolved advised soft, low fiber diet, no NSAID use ff up with PCP in 3-5 days, repeat CBC on ff up hg on discharge 13, consider EGD if Hg further trending down Migraine stable outpatient ff up case and plan of care discussed with patient and her mother they are comfortable and agreeable with plan of care Total Time Total Time Spent Total Time Spent (In Minutes): 30 minutes Discharge Plan Discharge Items Patient Disposition: Home - Self-Care Reason For Visit: UGIB Discharge Diagnosis: DIARRHEA, LIKELY VIRAL GASTROENTERITIS Condition: Good Discharge Goals: Diagnostic testing and Therapeutic intervention Activity: Resume your previous activity Activity Comment: GRADUALLY TOLERATED Lifting: Wait until after follow-up appointment Exercise/Sports: Wait until after follow-up appointment Driving/Machine Use Comment: WAIT UNTIL AFTER FOLLOW UP APPOINTMENT Non-emergency contact: Primary Care Provider Call non-emergency contact if: you have any medication questions, your symptoms worsen, your pain is not controlled, your pain is worsening, your pain is unusual for you and you have a fever Follow-up/Referrals: Samy Morse [Primary Care Provider] - 07/08/18 11:05 am Diet: Low Fiber, Low Fat and See below Diet Comment: SOFT DIET, AVOID DAIRY Addtl Provider Instructions: PLEASE FOLLOW UP WITH PRIMARY CARE PHYSICIAN NOTED ABOVE. DO NOT USE MEDICATIONS UNDER THE CLASS OF NSAIDS- EXAMPLES: IBUPROFEN, NAPROXEN , ETC. DRINK PLENTY OF FLUIDS. CALL PRIMARY CARE PHYSICIAN OR RETURN TO ER IMMEDIATELY IF WITH RECURRENCE/ WORSENING OF SYMPTOMS. Prescriptions: New loperamide 2 mg tablet 2 mg PO Q3H PRN (Reason: loose stool) Qty: 14 RF: 0 Continue desogestrel-ethinyl estradiol 0.15-0.03 mg tablet 1 tab PO DAILY RF: 0 Stand-Alone Forms: My [facility], Work/School Release (Inpt) Discharge Orders: Discharge Order (Routine); Ordered 07/06/18 Ordered By: Ahsan Scott Admission Data Admit Date/Time: 07/06/18 03:51 Attending Provider: Ahsan Scott Admit Provider: Naldo Rodrigez Primary Care Provider: Samy Morse Other Providers: Naldo Rodrigez ; Benny Love ; Vicky Ang ; Rosemary Ricardo ; Israel Oden ; Calos Ko ; Margie Cooper ; Sherri Silva ; Mak Pierce ; Kosta Benítez ; Alissa Grimaldo ; Marilu Multani ; Cindy Linares ; Janna Estrella ; Mark Thurman Service: Telemetry Medical Other Interventions: Discharge Summary Assessment (RN) Last Done: 07/06/18 14:29 DC Date/Time DO NOT enter until pt leaves facility: 07/06/18 15:06
== END 2018-07-06 15:06 | disposition home or self-care (01) ==
LOC: 2W 00:02 → ED 00:02 → 2W 04:36